=== PATIENT | male | born 1990 | race Hispanic/Latino ===

== ENCOUNTER 2021-06-12 10:09 | Emergency (ER) | payer OTHER, SELFPAY | END 2021-06-12 14:05 | disposition home or self-care (01) | LOC: MERGE 10:09 → CSHERS 10:09 | DX: M25.512 Pain in left shoulder (principal); V42.5XXA Car driver injured in collision with two- or three-wheeled motor vehicle in traffic accident, initial encounter | CPT/HCPCS: 71045 ==